=== PATIENT | female | born 1990 | race Two or more races ===

== ENCOUNTER 2017-08-11 11:21 | Outpatient (CLI) | payer MEDICAID ==
[2017-08-11 11:33] VITALS: BP 97/61
== END 2017-08-11 12:00 | disposition home or self-care (01) ==
LOC: LDOP 11:21
PROVIDERS: ATTEND Obstetrics & Gynecology
DX: O76 Abnormality in fetal heart rate and rhythm complicating labor and delivery (principal); Z3A.37 37 weeks gestation of pregnancy
CPT/HCPCS: 59025; 99201; G0463

== ENCOUNTER 2017-08-12 13:24 | Inpatient (IN) | payer MEDICAID ==
[~2017-08-12] VITALS: Ht 149.9 cm; Wt 73.2 kg
[2017-08-12] MEDS: D5%-LACTATED RINGERS 1,000 ML IV SCH (21:59)
[2017-08-12] MEDS ORDERED: OXYTOCIN 30U/ 0.9% NaCL 500ML 500 ML IV PRN (21:59)
[2017-08-12] MEDS ORDERED: OXYTOCIN 30U/ 0.9% NaCL 500ML 500 ML IV ONE (21:59)
[2017-08-12 22:00] VITALS: BP 110/78
[2017-08-12] MEDS ORDERED: FENTANYL PF 100 MCG/2ML IV PRN (22:00)
[2017-08-12] MEDS ORDERED: MISOPROSTOL 25 MCG TABLET VG PRN (22:00)
[2017-08-12] MEDS ORDERED: ONDANSETRON 2MG/ML, 2ML IVPush PRN (22:00)
[2017-08-12] MEDS ORDERED: TERBUTALINE 1 MG/ML, 1ML SQ PRN (22:00)
[2017-08-12] MEDS ORDERED: NEWBORN KIT ONE (22:03)
[2017-08-12] MEDS ORDERED: MISOPROSTOL 25 MCG TABLET ONE (22:04)
[2017-08-12] MEDS: LACTATED RINGERS 1,000 ML IV SCH (22:10)
[2017-08-12] MEDS ORDERED: PLEASE ENTER HEIGHT AND WEIGHT MC SCH (22:30)
[2017-08-12 22:33] LABS: BASOPHILS # (AUTO) 0.06 x10^3/uL (0-0.1); BASOPHILS % (AUTO) 1 % (0-1); EOSINOPHILS # (AUTO) 0.03 x10^3/uL (0-0.4); EOSINOPHILS % (AUTO) 0 % (1-7); LYMPHOCYTES # (AUTO) 2.18 x10^3/uL (1-3.4); LYMPHOCYTES % (AUTO) 31 % (22-44); MD NO; MEAN CORPUSCULAR HEMOGLOBIN 30.6 pg (27.0-34.8); MEAN CORPUSCULAR HGB CONC 32.9 g/dL (32.4-35.8); MEAN CORPUSCULAR VOLUME 93.1 fL (80-100); MEAN PLATELET VOLUME 9.9 fL (7.4-10.4); MONOCYTES # (AUTO) 0.38 x10^3/uL (0.2-0.8); MONOCYTES % (AUTO) 5 % (2-9); NEUTROPHILS % (AUTO) 62 % (42-75); PLATELET COUNT 223 x10^3/uL (130-400); RED BLOOD COUNT 4.11 x10^6/uL (3.82-5.3); RED CELL DISTRIBUTION WIDTH 13.5 % (9.6-15.2)
[2017-08-13] MEDS ORDERED: MISOPROSTOL 25 MCG TABLET ONE (04:03)
[2017-08-13] MEDS: LACTATED RINGERS 1,000 ML IV SCH ×6 (04:56→22:31)
[2017-08-13] MEDS ORDERED: FENTANYL PF 100 MCG/2ML ONE ×2 (05:37→07:08)
[2017-08-13] MEDS: FENTANYL PF 100 MCG/2ML IVPush PRN ×2 (05:40→07:11)
[2017-08-13] MEDS ORDERED: OXYTOCIN 30U/ 0.9% NaCL 500ML 500 ML ONE (15:34)
[2017-08-13 22:32] LABS: BASOPHILS # (AUTO) 0.03 x10^3/uL (0-0.1); BASOPHILS % (AUTO) 0 % (0-1); EOSINOPHILS # (AUTO) 0.05 x10^3/uL (0-0.4); EOSINOPHILS % (AUTO) 1 % (1-7); LYMPHOCYTES # (AUTO) 2.48 x10^3/uL (1-3.4); LYMPHOCYTES % (AUTO) 30 % (22-44); MD NO; MEAN CORPUSCULAR HEMOGLOBIN 30.9 pg (27.0-34.8); MEAN CORPUSCULAR HGB CONC 33.2 g/dL (32.4-35.8); MEAN CORPUSCULAR VOLUME 93.1 fL (80-100); MONOCYTES # (AUTO) 0.39 x10^3/uL (0.2-0.8); MONOCYTES % (AUTO) 5 % (2-9); NEUTROPHILS # (AUTO) 5.25 x10^3/uL (1.8-6.8); NEUTROPHILS % (AUTO) 64 % (42-75); PLATELET COUNT 206 x10^3/uL (130-400); RED BLOOD COUNT 4.04 x10^6/uL (3.82-5.3); RED CELL DISTRIBUTION WIDTH 13.5 % (9.6-15.2)
[2017-08-13 22:40] LABS: ALANINE AMINOTRANSFERASE 15 U/L (12-78); ALBUMIN 2.5 g/dL (3.4-5.0); ANION GAP 10 mmol/L (5-15); CALCIUM 8.7 mg/dL (8.5-10.1); CHLORIDE 112 mmol/L (98-107); CREATININE 0.38 mg/dL (0.55-1.02)
[2017-08-13 22:42] LABS: ALKALINE PHOSPHATASE 145 U/L (45-117); BILIRUBIN,TOTAL 0.3 mg/dL (0.2-1.0)
[2017-08-14] MEDS ORDERED: ZOLPIDEM 5MG TABLET ONE (00:51)
[2017-08-14] MEDS: ZOLPIDEM 5MG TABLET PO SCH (00:53)
[2017-08-14] MEDS: LACTATED RINGERS 1,000 ML IV SCH ×4 (05:01→20:28)
[2017-08-14] MEDS ORDERED: FENTANYL PF 100 MCG/2ML ONE ×2 (08:13→08:36)
[2017-08-14] MEDS: FENTANYL PF 100 MCG/2ML IVPush PRN (08:24)
[2017-08-14] MEDS: D5%-LACTATED RINGERS 1,000 ML IV SCH ×2 (08:25→16:27)
[2017-08-14] MEDS ORDERED: BUPIVACAINE 0.25% ONE (08:36)
[2017-08-14] MEDS ORDERED: FENTANYL/BUPIV./NS/PF 250 ML EPIDCONT ONE (08:37)
[2017-08-14] MEDS ORDERED: FENTANYL/BUPIV./NS/PF 250 ML EPIDCONT SCH (12:28)
[2017-08-14] MEDS ORDERED: LACTATED RINGERS 1,000 ML IVBOLUS PRN (12:30)
[2017-08-14] MEDS ORDERED: LACTATED RINGERS 1,000 ML INTUTE SCH (13:30)
[2017-08-14] MEDS ORDERED: LACTATED RINGERS 1,000 ML INTUTE PRN (13:30)
[2017-08-14] MEDS ORDERED: CEFAZOLIN PMX 1GM/50ML 50 ML ONE (16:46)
[2017-08-14] MEDS ORDERED: CLINDAMYCIN PMX 900MG/50ML 50 ML ONE (17:00)
[2017-08-14] MEDS ORDERED: [UNRECOGNIZED DRUG - REMARK] MC SCH (17:00)
[2017-08-14] MEDS ORDERED: CLINDAMYCIN PMX 900MG/50ML 50 ML IV SCH (17:00)
[2017-08-14] MEDS ORDERED: CEFAZOLIN PMX 1GM/50ML 50 ML IV SCH (17:30)
[2017-08-14] MEDS ORDERED: OXYTOCIN 30U/ 0.9% NaCL 500ML 500 ML ONE (18:33)
[2017-08-14] MEDS ORDERED: ACETAMINOPHEN 325 MG TABLET ONE (18:47)
[2017-08-14] MEDS ORDERED: OXYcodone/APAP 5/325MG TABLET ONE (18:47)
[2017-08-14] MEDS: OXYcodone/APAP 5/325MG TABLET PO PRN (18:49)
[2017-08-14] MEDS ORDERED: ACETAMINOPHEN 325 MG TABLET PO PRN ×2 (19:00)
[2017-08-14] MEDS ORDERED: MISOPROSTOL 200 MCG TABLET PR ONE (19:00)
[2017-08-14] MEDS ORDERED: MISOPROSTOL 200 MCG TABLET ONE (19:07)
[2017-08-14] MEDS: OXYTOCIN 30U/ 0.9% NaCL 500ML 500 ML IV SCH (19:12)
[2017-08-14] MEDS ORDERED: IBUPROFEN 600 MG TABLET ONE (19:15)
[2017-08-14] MEDS: IBUPROFEN 600 MG TABLET PO PRN (19:18)
[2017-08-14] MEDS ORDERED: MISOPROSTOL 200 MCG TABLET PR PRN (19:30)
[2017-08-14] MEDS ORDERED: OXYcodone/APAP 5/325MG TABLET PO PRN ×2 (19:30)
[2017-08-14] MEDS ORDERED: ONDANSETRON 2MG/ML, 2ML IV PRN (19:30)
[2017-08-14 21:50] VITALS: BP 98/57
[2017-08-15 00:20] VITALS: BP 102/58
[2017-08-15] MEDS: CLINDAMYCIN PMX 900MG/50ML 50 ML IV SCH ×2 (00:45→09:23)
[2017-08-15] MEDS: OXYcodone/APAP 5/325MG TABLET PO PRN ×4 (03:59→20:59)
[2017-08-15] MEDS: IBUPROFEN 600 MG TABLET PO PRN ×3 (03:59→20:58)
[2017-08-15 04:15] VITALS: BP 127/77
[2017-08-15] MEDS: LACTATED RINGERS 1,000 ML IV SCH ×2 (04:28→11:48)
[2017-08-15] MEDS: OXYTOCIN 30U/ 0.9% NaCL 500ML 500 ML IV SCH ×2 (05:12→11:48)
[2017-08-15 05:13] LABS: BASOPHILS # (AUTO) 0.13 x10^3/uL (0-0.1); BASOPHILS % (AUTO) 1 % (0-1); EOSINOPHILS # (AUTO) 0.05 x10^3/uL (0-0.4); EOSINOPHILS % (AUTO) 0 % (1-7); LYMPHOCYTES # (AUTO) 2.09 x10^3/uL (1-3.4); LYMPHOCYTES % (AUTO) 12 % (22-44); MD NO; MEAN CORPUSCULAR HEMOGLOBIN 31.7 pg (27.0-34.8); MEAN CORPUSCULAR VOLUME 93.4 fL (80-100); MEAN PLATELET VOLUME 9.7 fL (7.4-10.4); MONOCYTES # (AUTO) 0.82 x10^3/uL (0.2-0.8); MONOCYTES % (AUTO) 5 % (2-9); NEUTROPHILS # (AUTO) 13.97 x10^3/uL (1.8-6.8); NEUTROPHILS % (AUTO) 82 % (42-75); PLATELET COUNT 166 x10^3/uL (130-400); RED BLOOD COUNT 3.42 x10^6/uL (3.82-5.3); RED CELL DISTRIBUTION WIDTH 13.4 % (9.6-15.2)
[2017-08-15 08:05] VITALS: BP 117/72
[2017-08-15] MEDS: PRENATAL VIT/IRON/FA 1 EACH TABLET PO SCH (09:23)
[2017-08-15] MEDS: DOCUSATE 100 MG CAPSULE PO PRN (09:23)
[2017-08-15 11:58] VITALS: BP 128/87
[2017-08-15 16:28] VITALS: BP 112/76
[2017-08-15 19:37] VITALS: BP 121/81
[2017-08-15] MEDS: ZOLPIDEM 5MG TABLET PO SCH (20:59)
[2017-08-16] MEDS: OXYTOCIN 30U/ 0.9% NaCL 500ML 500 ML IV SCH (01:12)
[2017-08-16] MEDS: OXYcodone/APAP 5/325MG TABLET PO PRN ×2 (01:58→10:46)
[2017-08-16 08:30] VITALS: BP 129/80
[2017-08-16] MEDS: IBUPROFEN 600 MG TABLET PO PRN (10:46)
[2017-08-16] MEDS: PRENATAL VIT/IRON/FA 1 EACH TABLET PO SCH (10:46)
[2017-08-16] MEDS: DOCUSATE 100 MG CAPSULE PO PRN (10:46)
[2017-08-16] MEDS ORDERED: OXYC-302 PO (12:35)
[2017-08-16] MEDS ORDERED: IBUP-1222 PO (12:36)
== END 2017-08-16 14:05 | disposition home or self-care (01) | DRG 774 ==
LOC: LDIP 21:30 → 2NW 08-14 21:50
PROVIDERS: ADMIT Obstetrics & Gynecology; ATTEND Obstetrics & Gynecology
PROC: 10D07Z6 Extraction of Products of Conception, Vacuum, Via Natural or Artificial Opening (ICD-10-PCS; principal; 2017-08-12)
PROC: 3E0R3BZ Introduction of Anesthetic Agent into Spinal Canal, Percutaneous Approach (ICD-10-PCS; 2017-08-12)
PROC: 00HU33Z Insertion of Infusion Device into Spinal Canal, Percutaneous Approach (ICD-10-PCS; 2017-08-12)
DX: O24.420 Gestational diabetes mellitus in childbirth, diet controlled (principal); O75.2 Pyrexia during labor, not elsewhere classified; O41.1230 Chorioamnionitis, third trimester, not applicable or unspecified; O36.5930 Maternal care for other known or suspected poor fetal growth, third trimester, not applicable or unspecified; O76 Abnormality in fetal heart rate and rhythm complicating labor and delivery; O77.0 Labor and delivery complicated by meconium in amniotic fluid; Z37.0 Single live birth; Z3A.38 38 weeks gestation of pregnancy
CPT/HCPCS: 36415; 59025; 80053; 82803; 82962; 85025; 86762; 86850; 86900; 87040; 93005; 99201; J3010; G0463; J2590; J7120; J7121

== ENCOUNTER 2019-06-22 21:47 | Emergency (ER) | payer MEDICAID ==
[~2019-06-22 21:47] MED LIST: IBUP-1222 PO; OXYC-302 PO
== END 2019-06-23 04:50 | disposition left against medical advice (07) ==
LOC: ED 06-23 04:44
DX: Z53.21 Procedure and treatment not carried out due to patient leaving prior to being seen by health care provider (principal)

== ENCOUNTER 2019-07-31 08:13 | Emergency (ER) | payer MEDICAID ==
[~2019-07-31] VITALS: Ht 149.9 cm; Wt 79.3 kg
--- NOTE | 2019-07-31 08:27 | NUR ---
Pt ambulates from triage to room with steady gait and balance. Pt provided gown to change into. Pt wearing mask to cover cough. Pt is a 28 y.o. female who is 36 weeks G3 T2 L2. Pt states current medical history of gestational diabetes that is managed at this time with diet. Pt c/o ear pain starting Wednesday, cough, and fever. L&D notified at triage. No acute distress noted at this time. No needs expressed at this time.
[2019-07-31] MEDS ORDERED: Tylenol (08:37)
[2019-07-31] MEDS ORDERED: Prenatal vitamin (08:37)
--- NOTE | 2019-07-31 08:48 | NUR ---
Pt resting on gurney with NIBP cuff and pulse ox monitor. Bedrail up x 1. EDMD resident at bedside. Call light at bedside. No needs expressed at this time.
--- NOTE | 2019-07-31 09:27 | NUR ---
Called L&D and spoke to CHETNA Davenport. Requested RN to perform heart tones for pt. CHETNA Davenport stated an RN would come down soon.
--- NOTE | 2019-07-31 09:36 | NUR ---
L&D RN perfomed heart sounds. L&D RN notified EDRN, "Her baby sounds great. If she starts having bleeding or cramping send her up stairs."
[2019-07-31 11:13] VITALS: BP 119/79
--- NOTE | 2019-07-31 11:13 | NUR ---
Patient given discharge instructions and they have confirmed that they understand the instructions. Patient ambulatory with steady gait. Pt left with d/c paperwork, Rx, and all personal belongings.
== END 2019-07-31 11:15 | disposition home or self-care (01) ==
LOC: ED 08:33
DX: O26.893 Other specified pregnancy related conditions, third trimester (principal); H65.01 Acute serous otitis media, right ear; Z3A.37 37 weeks gestation of pregnancy
CPT/HCPCS: 87081; 87880; 99283

== ENCOUNTER 2019-08-10 07:13 | Inpatient (IN) | payer MEDICAID ==
[~2019-08-10] VITALS: Ht 149.9 cm; Wt 80.4 kg
[~2019-08-10 07:13] MED LIST changes: +Prenatal vitamin; +Tylenol
[2019-08-10] MEDS ORDERED: D5%-LACTATED RINGERS 1,000 ML IV SCH (08:26)
[2019-08-10] MEDS ORDERED: OXYTOCIN 30U/ 0.9% NaCL 500ML 500 ML IV ONE (08:26)
[2019-08-10] MEDS ORDERED: FENTANYL PF 100 MCG/2ML IV PRN (08:30)
[2019-08-10] MEDS ORDERED: CALCIUM CARBONATE 500 MG TAB.CHEW PO PRN (08:30)
[2019-08-10] MEDS ORDERED: SODIUM CITRATE/CITRIC ACID 30 ML UDC PO PRN (08:30)
[2019-08-10] MEDS ORDERED: METOCLOPRAMIDE 5 MG/ML, 2ML IVPush PRN (08:30)
[2019-08-10] MEDS ORDERED: FENTANYL PF 100 MCG/2ML IVPush PRN (08:30)
[2019-08-10] MEDS ORDERED: TERBUTALINE 1 MG/ML, 1ML IVPush PRN (08:30)
[2019-08-10] MEDS ORDERED: ONDANSETRON 2MG/ML, 2ML IVPush PRN (08:30)
[2019-08-10] MEDS ORDERED: TERBUTALINE 1 MG/ML, 1ML SQ PRN (08:30)
[2019-08-10] MEDS: LACTATED RINGERS 1,000 ML IV SCH ×3 (08:45→23:08)
[2019-08-10] MEDS ORDERED: OXYTOCIN 30U/ 0.9% NaCL 500ML 500 ML ONE (08:54)
[2019-08-10] MEDS ORDERED: LIDOCAINE 1%, 20ML ONE (08:54)
[2019-08-10] MEDS ORDERED: MISOPROSTOL 25 MCG TABLET ONE (08:54)
[2019-08-10] MEDS ORDERED: NEWBORN KIT ONE (08:54)
[2019-08-10] MEDS ORDERED: MISOPROSTOL 200 MCG TABLET ONE (08:54)
[2019-08-10 09:19] LABS: BASOPHILS # (AUTO) 0.03 x10^3/uL (0-0.1); BASOPHILS % (AUTO) 0 % (0-1); EOSINOPHILS # (AUTO) 0.04 x10^3/uL (0-0.4); EOSINOPHILS % (AUTO) 1 % (1-7); LYMPHOCYTES # (AUTO) 2.22 x10^3/uL (1-3.4); LYMPHOCYTES % (AUTO) 29 % (22-44); MD NO; MEAN CORPUSCULAR HEMOGLOBIN 31.5 pg (27.0-34.8); MEAN CORPUSCULAR HGB CONC 33.3 g/dL (32.4-35.8); MEAN CORPUSCULAR VOLUME 94.6 fL (80-100); MEAN PLATELET VOLUME 9.2 fL (7.4-10.4); MONOCYTES # (AUTO) 0.35 x10^3/uL (0.2-0.8); MONOCYTES % (AUTO) 5 % (2-9); NEUTROPHILS # (AUTO) 5.01 x10^3/uL (1.8-6.8); NEUTROPHILS % (AUTO) 66 % (42-75); PLATELET COUNT 249 x10^3/uL (130-400); RED BLOOD COUNT 3.85 x10^6/uL (3.82-5.3); RED CELL DISTRIBUTION WIDTH 13.2 % (9.6-15.2)
[2019-08-10] MEDS ORDERED: FENTANYL/BUPIV./NS/PF 250 ML EPIDCONT SCH ×2 (09:20→16:30)
[2019-08-10 09:25] VITALS: BP 114/72
[2019-08-10] MEDS ORDERED: FENTANYL PF 500 MCG, BUPIVACAINE/PF 0.5%, 30ML 62.5 ML in SODIUM CHLORIDE 0.9% 177.5 ML EPIDCONT SCH (09:30)
[2019-08-10] MEDS ORDERED: MISOPROSTOL 25 MCG TABLET VG PRN (09:30)
[2019-08-10] MEDS ORDERED: SODIUM CHLORIDE FLUSH 10ML SYR IVF PRN (09:30)
[2019-08-10] MEDS ORDERED: FLU VACC QS2019-20 36MOS UP/PF 0.5 ML IM-VACC ONE (10:00)
[2019-08-10] MEDS ORDERED: OXYTOCIN 30U/ 0.9% NaCL 500ML 500 ML IV PRN (14:08)
[2019-08-10] MEDS ORDERED: LACTATED RINGERS 1,000 ML IV SCH (16:30)
[2019-08-10] MEDS ORDERED: NALOXONE 0.4 MG/ML, 1ML IVPush PRN (16:30)
[2019-08-10] MEDS ORDERED: EPHEDRINE 50 MG/ML, 1ML IVPush PRN (16:30)
[2019-08-10] MEDS ORDERED: LACTATED RINGERS 1,000 ML IVBOLUS PRN (16:30)
[2019-08-10] MEDS ORDERED: BUPIVACAINE/PF 0.25% ONE (16:54)
[2019-08-10 19:35] VITALS: BP 119/75
[2019-08-11] MEDS ORDERED: OXYTOCIN 30U/ 0.9% NaCL 500ML 0 ML ONE (03:26)
[2019-08-11] MEDS ORDERED: OXYTOCIN 30U/ 0.9% NaCL 500ML 500 ML IV SCH (03:52)
[2019-08-11] MEDS ORDERED: SIMETHICONE 80 MG CHEW TAB PO PRN (04:00)
[2019-08-11] MEDS ORDERED: MISOPROSTOL 200 MCG TABLET PR PRN (04:00)
[2019-08-11] MEDS ORDERED: METHYLERGONOVINE 0.2 MG/ML IM PRN (04:00)
[2019-08-11] MEDS ORDERED: ACETAMINOPHEN 325 MG TABLET PO PRN ×2 (04:00)
[2019-08-11] MEDS ORDERED: ONDANSETRON 2MG/ML, 2ML IV PRN (04:00)
[2019-08-11] MEDS ORDERED: OXYTOCIN 10 UNITS/ML, 1ML ONE (04:01)
[2019-08-11] MEDS ORDERED: OXYTOCIN 10 UNITS/ML, 1ML IM ONE (04:30)
[2019-08-11] MEDS ORDERED: IBUPROFEN 600 MG TABLET ONE (06:28)
[2019-08-11] MEDS: IBUPROFEN 600 MG TABLET PO PRN ×3 (06:30→19:36)
[2019-08-11 07:30] VITALS: BP 99/64
[2019-08-11] MEDS: OXYcodone/APAP 5/325MG TABLET PO PRN ×4 (07:30→22:41)
[2019-08-11] MEDS: DOCUSATE 100 MG CAPSULE PO PRN (07:31)
[2019-08-11] MEDS: PRENATAL VIT/IRON/FA 1 EACH TABLET PO SCH (07:31)
[2019-08-11 12:10] LABS: MEAN CORPUSCULAR HEMOGLOBIN 31.4 pg (27.0-34.8); MEAN CORPUSCULAR HGB CONC 33.2 g/dL (32.4-35.8); MEAN CORPUSCULAR VOLUME 94.6 fL (80-100); MEAN PLATELET VOLUME 9.6 fL (7.4-10.4); PLATELET COUNT 238 x10^3/uL (130-400); RED BLOOD COUNT 4.01 x10^6/uL (3.82-5.3); RED CELL DISTRIBUTION WIDTH 13.1 % (9.6-15.2)
[2019-08-11 12:55] VITALS: BP 129/81
[2019-08-11 13:02] LABS: BASOPHILS # (AUTO) 0.01 x10^3/uL (0-0.1); BASOPHILS % (AUTO) 0 % (0-1); EOSINOPHILS # (AUTO) 0.04 x10^3/uL (0-0.4); EOSINOPHILS % (AUTO) 0 % (1-7); LYMPHOCYTES # (AUTO) 2.95 x10^3/uL (1-3.4); LYMPHOCYTES % (AUTO) 22 % (22-44); MD SCAN; MONOCYTES # (AUTO) 0.58 x10^3/uL (0.2-0.8); MONOCYTES % (AUTO) 4 % (2-9); NEUTROPHILS # (AUTO) 10.15 x10^3/uL (1.8-6.8); NEUTROPHILS % (AUTO) 74 % (42-75)
[2019-08-11 16:43] VITALS: BP 154/83
[2019-08-11 19:15] VITALS: BP 127/79
[2019-08-12 00:50] VITALS: BP 134/85
[2019-08-12] MEDS: IBUPROFEN 600 MG TABLET PO PRN ×3 (02:11→14:01)
[2019-08-12] MEDS: PRENATAL VIT/IRON/FA 1 EACH TABLET PO SCH (07:32)
[2019-08-12] MEDS: DOCUSATE 100 MG CAPSULE PO PRN (07:33)
[2019-08-12] MEDS: OXYcodone/APAP 5/325MG TABLET PO PRN ×2 (07:34→14:02)
[2019-08-12 07:50] VITALS: BP 101/62
[2019-08-12] MEDS ORDERED: OXYC-302 PO (08:12)
[2019-08-12] MEDS ORDERED: IBUP-1223 PO (08:12)
[2019-08-12] MEDS ORDERED: DOCU-131 PO (08:12)
[2020-01-05] MEDS ORDERED: PREN1TAB10 PO (13:22)
== END 2019-08-12 16:42 | disposition home or self-care (01) | DRG 560 ==
LOC: LDIP 08:20 → 2NW 08-11 06:22
PROVIDERS: ADMIT Obstetrics & Gynecology; ATTEND Obstetrics & Gynecology
PROC: 10H07YZ Insertion of Other Device into Products of Conception, Via Natural or Artificial Opening (ICD-10-PCS; principal; 2019-08-11)
PROC: 10E0XZZ Delivery of Products of Conception, External Approach (ICD-10-PCS; 2019-08-11)
PROC: 3E0P3VZ Introduction of Hormone into Female Reproductive, Percutaneous Approach (ICD-10-PCS; 2019-08-11)
PROC: 10907ZC Drainage of Amniotic Fluid, Therapeutic from Products of Conception, Via Natural or Artificial Opening (ICD-10-PCS; 2019-08-11)
PROC: 3E0R3BZ Introduction of Anesthetic Agent into Spinal Canal, Percutaneous Approach (ICD-10-PCS; 2019-08-11)
PROC: 00HU33Z Insertion of Infusion Device into Spinal Canal, Percutaneous Approach (ICD-10-PCS; 2019-08-11)
DX: O24.420 Gestational diabetes mellitus in childbirth, diet controlled (principal); O36.5930 Maternal care for other known or suspected poor fetal growth, third trimester, not applicable or unspecified; Z37.0 Single live birth; Z3A.39 39 weeks gestation of pregnancy; Z82.49 Family history of ischemic heart disease and other diseases of the circulatory system; Z83.3 Family history of diabetes mellitus; Z88.0 Allergy status to penicillin; O69.81X0 Labor and delivery complicated by cord around neck, without compression, not applicable or unspecified
CPT/HCPCS: 36415; 82962; 85025; 86592; 86850; 86900; 90686; G0378; J3490; J2590; J7120; J7121

== ENCOUNTER 2019-09-26 19:45 | Emergency (ER) | payer MEDICAID, OTHER ==
[~2019-09-26] VITALS: Ht 149.9 cm; Wt 72.7 kg
[~2019-09-26 19:45] MED LIST changes: +DOCU-131 PO; +IBUP-1223 PO
[2019-09-26 20:23] VITALS: BP 143/92
[2019-09-26] MEDS ORDERED: IBUPROFEN 600 MG TABLET PO ONE (21:00)
[2019-09-26] MEDS ORDERED: IBUPROFEN 200 MG TABLET ONE (21:05)
== END 2019-09-26 21:17 | disposition home or self-care (01) ==
LOC: ED 20:45
DX: S29.012A Strain of muscle and tendon of back wall of thorax, initial encounter (principal); S49.92XA Unspecified injury of left shoulder and upper arm, initial encounter; V89.2XXA Person injured in unspecified motor-vehicle accident, traffic, initial encounter; Y93.89 Activity, other specified; Y92.415 Exit ramp or entrance ramp of street or highway as the place of occurrence of the external cause; Y99.8 Other external cause status
CPT/HCPCS: 71046; 99283

== ENCOUNTER → 2020-01-05 | Outpatient (CLI) | payer MEDICAID ==
[~2020-01-05] MED LIST changes: +PREN1TAB10 PO
[2020-01-05 13:45] LABS: MICROSCOPIC NOT IND
[2020-01-05 13:58] LABS: CHLORIDE 110 mmol/L (98-107)
[2020-01-05 14:02] LABS: BASOPHILS # (AUTO) 0.03 x10^3/uL (0-0.1); BASOPHILS % (AUTO) 1 % (0-1); EOSINOPHILS # (AUTO) 0.08 x10^3/uL (0-0.4); EOSINOPHILS % (AUTO) 2 % (1-7); LYMPHOCYTES # (AUTO) 2.75 x10^3/uL (1-3.4); LYMPHOCYTES % (AUTO) 49 % (22-44); MD NO; MEAN CORPUSCULAR HEMOGLOBIN 30.5 pg (27.0-34.8); MEAN CORPUSCULAR HGB CONC 33.3 g/dL (32.4-35.8); MEAN CORPUSCULAR VOLUME 91.8 fL (80-100); MEAN PLATELET VOLUME 9.3 fL (7.4-10.4); MONOCYTES % (AUTO) 4 % (2-9); NEUTROPHILS # (AUTO) 2.59 x10^3/uL (1.8-6.8); NEUTROPHILS % (AUTO) 46 % (42-75); PLATELET COUNT 292 x10^3/uL (130-400); RED BLOOD COUNT 4.25 x10^6/uL (3.82-5.3); RED CELL DISTRIBUTION WIDTH 12.9 % (9.6-15.2)
[2020-01-05 14:15] LABS: ALANINE AMINOTRANSFERASE 33 U/L (12-78); ALBUMIN 3.9 g/dL (3.4-5.0); ALKALINE PHOSPHATASE 98 U/L (45-117); ANION GAP 7 mmol/L (5-15); BILIRUBIN,TOTAL 0.4 mg/dL (0.2-1.0); CALCIUM 8.9 mg/dL (8.5-10.1); CREATININE 0.66 mg/dL (0.55-1.02); TOTAL PROTEIN 7.9 g/dL (6.4-8.2)
== END | disposition home or self-care (01) ==
LOC: STAR 12:45
PROVIDERS: ATTEND Obstetrics & Gynecology
DX: Z01.818 Encounter for other preprocedural examination (principal)
CPT/HCPCS: 36415; 80053; 81003; 84702; 85025

== ENCOUNTER 2020-01-09 14:47 | Day surgery (SDC) | payer MEDICAID ==
[~2020-01-09] VITALS: Ht 149.9 cm; Wt 74.6 kg
[~2020-01-09 14:47] MED LIST changes: +BUPIVACAINE/PF-EPI 0.25% 1:200K ONE
[2020-01-09] MEDS ORDERED: CHLORHEXIDINE 15 ML UDC MM STA (14:58)
[2020-01-09] MEDS ORDERED: LACTATED RINGERS 1,000 ML IV SCH (14:58)
[2020-01-09 15:08] VITALS: BP 124/76
[2020-01-09] MEDS ORDERED: GABAPENTIN 300 MG CAPSULE PO ONE (15:30)
[2020-01-09] MEDS ORDERED: ACETAMINOPHEN 500 MG TABLET PO ONE (15:30)
[2020-01-09] MEDS ORDERED: SCOPOLAMINE 1MG PATCH TD SCH (15:30)
[2020-01-09 15:39] LABS: HCG UR SG 1.021 (1.003-1.030)
[2020-01-09] MEDS ORDERED: FENTANYL PF 250 MCG/5ML ONE (15:52)
[2020-01-09] MEDS ORDERED: MIDAZOLAM 1 MG/ML, 2ML ONE (15:52)
[2020-01-09] MEDS ORDERED: DIPHENHYDRAMINE 50 MG/ML, 1ML IVPush PRN (16:30)
[2020-01-09] MEDS ORDERED: FENTANYL PF 100 MCG/2ML IV PRN (16:30)
[2020-01-09] MEDS ORDERED: PROMETHAZINE 25 MG/ML, 1ML IVPush PRN (16:30)
[2020-01-09] MEDS ORDERED: MEPERIDINE/PF 25MG/0.5ML IVPush PRN (16:30)
[2020-01-09] MEDS ORDERED: LABETALOL 5MG/ML, 20ML IV PRN (16:30)
[2020-01-09] MEDS ORDERED: HALOPERIDOL 5 MG/ML IV PRN (16:30)
[2020-01-09] MEDS ORDERED: HYDROmorphone 1 MG/ML, 1ML INJ IVPush PRN (16:30)
[2020-01-09] MEDS ORDERED: hydrALAzine 20 MG/ML, 1ML IV PRN (16:30)
[2020-01-09] MEDS ORDERED: CLINDAMYCIN 150 MG/ML, 6ML ONE (16:31)
[2020-01-09] MEDS ORDERED: ROCURONIUM 10 MG/ML,10ML ONE (17:04)
[2020-01-09] MEDS ORDERED: SUGAMMADEX 200 MG/2 ML IVPush ONE (17:40)
[2020-01-09] MEDS ORDERED: NEOSTIGMINE 1 MG/ML, 10ML ONE (17:41)
[2020-01-09] MEDS ORDERED: PROPOFOL 10 MG/ML, 20ML ONE (17:41)
[2020-01-09] MEDS ORDERED: GLYCOPYRROLATE 0.2MG/1ML, 5ML ONE (17:41)
[2020-01-09] MEDS ORDERED: CEFAZOLIN 1,000 MG ONE (17:41)
[2020-01-09] MEDS ORDERED: DEXAMETHASONE 4 MG/ML, 1ML ONE (17:41)
[2020-01-09] MEDS ORDERED: SUCCINYLCHOLINE 20 MG/ML, 10ML ONE (17:41)
[2020-01-09] MEDS ORDERED: ONDANSETRON 2MG/ML, 2ML ONE (17:41)
[2020-01-09] MEDS ORDERED: OXYcodone 5 MG/5 ML ORAL.SOL UDC ONE ×2 (18:20→18:51)
[2020-01-09] MEDS: OXYcodone 5 MG/5 ML ORAL.SOL UDC PO PRN ×2 (18:30→18:45)
== END 2020-01-09 20:55 | disposition home or self-care (01) ==
LOC: OR 14:47 → 4NE 19:00 → OR 20:55
PROVIDERS: ATTEND Obstetrics & Gynecology
DX: Z30.2 Encounter for sterilization (principal); Z11.59 Encounter for screening for other viral diseases; I10 Essential (primary) hypertension; Z79.899 Other long term (current) drug therapy; Z88.0 Allergy status to penicillin; Z98.890 Other specified postprocedural states; Z83.3 Family history of diabetes mellitus; Z82.49 Family history of ischemic heart disease and other diseases of the circulatory system
CPT/HCPCS: 36415; 58670; 81025; 86850; 86900; 88302; J0330; J1100; J2250; J2405; J2704; J3010; J7120; U0001; G0378; J0690; J2710